=== PATIENT | female | born 1965 | race Caucasian/White ===

== ENCOUNTER 2017-04-03 19:43 | Emergency (ER) | payer BC ==
[2017-04-03] MEDS ORDERED: NS 1,000 ML IV ONE (20:04)
--- NOTE | 2017-04-03 20:14 | EDPHY ---
H & P Smoking Status: Never smoked Time Seen by Provider: 04/03/17 20:02 HPI/ROS: CHIEF COMPLAINT: Left chest pain HISTORY OF PRESENT ILLNESS: The patient is a 51-year-old female presenting with left sided chest pain that has been ongoing for the past 4 days. The patient states she has been previously dx/d with a "pleuritic catch" which intermittently causes pain to the left chest wall (for several years). Over the past 4 days she has developed worsening pain in the same area, just below her left breast. This pain is worse than her typical pain. It is constant, more severe and prevents her from sleeping. Her pain tends to feel worse after eating and improves with walking. She has associated nausea and has not been able to eat much. She denies vomiting or diarrhea. REVIEW OF SYSTEMS: A comprehensive 10 point review of systems is otherwise negative aside from elements mentioned in the history of present illness. (Nathalie Shaffer) Past Medical/Surgical History: Denies. (Nathalie Shaffer) Social History: . Here visiting her son at . (Nathalie Shaffer) Physical Exam: General Appearance: Appears uncomfortable Eyes: Pupils equal and round, no conjunctival pallor or injection ENT, Mouth: Mucous membranes moist Neck: Normal inspection Respiratory: Lungs are clear to auscultation Chest: Normal inspection. No chest wall tenderness. Back: Normal inspection. No tenderness over thoracic spine or ribs. Cardiovascular: Regular rate and rhythm Gastrointestinal: Abdomen is soft and non-tender Neurological: A&O, nonfocal, normal gait Skin: Warm and dry, no rash Extremities: Nontender, no pedal edema Psychiatric: Mood and affect normal (Nathalie Shaffer) Constitutional: Initial Vital Signs Temperature (C) 36.8 C 04/03/17 19:49 Heart Rate 91 04/03/17 19:49 Respiratory Rate 18 04/03/17 19:49 Blood Pressure 142/83 H 04/03/17 19:49 O2 Sat (%) 97 04/03/17 19:49 O2 Delivery Mode Room Air Allergies/Adverse Reactions: No Known Allergies Allergy (Unverified 04/03/17 19:55) Home Medications: Medication Instructions Recorded Ondansetron Odt [Zofran Odt 4 mg 4 mg PO Q4 PRN #6 tab 04/03/17 (*)] oxyCODONE/APAP 325 [Percocet 1 tab PO Q4 PRN #15 tab 04/03/17 5/325 (*)] Medical Decision Making - Diagnostics EKG Interpretation: EKG interpreted by me reveals normal sinus rhythm, rate 74, no ST or T segment changes. (Nathalie Shaffer) Imaging Results: Imaging Impressions Chest X-Ray 04/03/17 20:20 Impression: Query airways disease. Chest/Thorax CTA 04/03/17 21:08 Impression: 1. No pulmonary embolic disease. 2. 2 indeterminant liver lesions. Consider ultrasound for further evaluation. Results called and discussed with Chris Hays M.D., at 21:51 General information for patients regarding this examination can be found at [email or web address]. If you have questions or comments about this report, please contact me at [phone] (hospital) or [phone] (cell). ED Course/Re-evaluation: Patient presents with left chest pain that radiates to her back. No associated URI symptoms. Pain is worse after eating and improves with walking. Patient has a normal examination. Plan for blood work and chest x-ray. Laboratory results, EKG and chest x-ray are all normal. I have a high clinical concern for a serious etiology for her pain. I will proceed with CT scan of the chest to rule out pulmonary embolism or other etiology of pain. Signed over to Dr. Hays. Given severity of pain, if initial testing is normal, recommend DC home with pain medication and PCP follow-up. d/w pt and at length, pt has significant anxiety, likely a contributing factor. Hopefully, CT will be normal and pt will be reassured. Will f/u with PCP when she returns home. (Nathalie Shaffer) 2214: I did re-evaluate this patient this time. She is resting comfortably. Her CT angiogram of her chest does not show pulmonary embolism. There is no explanation for sharp left-sided pain. However her CT scan did show indeterminate liver lesions. I have discussed this with the patient. She understands she needs to follow up with primary care doctor outpatient for this. I recommend liver ultrasound versus CT liver protocol. She understands. (Chris Hays) Differential Diagnosis: Differential diagnosis includes though it is not limited to pneumonia, pneumothorax, pulmonary embolism, aortic dissection, pericarditis, acute coronary syndrome. (Nathalie Shaffer) - Data Points Laboratory Results: Laboratory Results 04/03/17 20:36 04/03/17 20:36 04/03/17 04/03/17 04/03/17 20:37 20:36 20:36 WBC 6.05 10^3/uL 10^3/uL (3.80-9.50) RBC 4.18 10^6/uL 10^6/uL (4.18-5.33) Hgb 14.2 g/dL g/dL (12.6-16.3) POC Hgb 14.6 gm/dL gm/dL (12.6-16.3) Hct 39.9 % % (38.0-47.0) POC Hct 43 % % (38-47) MCV 95.5 fL fL (81.5-99.8) MCH 34.0 pg pg (27.9-34.1) MCHC 35.6 g/dL g/dL (32.4-36.7) RDW 12.1 % % (11.5-15.2) Plt Count 174 10^3/uL 10^3/uL (150-400) MPV 10.9 fL fL (8.7-11.7) Neut % (Auto) 63.3 % % (39.3-74.2) Lymph % (Auto) 26.3 % % (15.0-45.0) [place] % (Auto) 9.1 % % (4.5-13.0) Eos % (Auto) 0.3 % L % (0.6-7.6) Baso % (Auto) 0.7 % % (0.3-1.7) Nucleat RBC Rel Count 0.0 % % (0.0-0.2) Absolute Neuts (auto) 3.83 10^3/uL 10^3/uL (1.70-6.50) Absolute Lymphs (auto) 1.59 10^3/uL 10^3/uL (1.00-3.00) Absolute Monos (auto) 0.55 10^3/uL 10^3/uL (0.30-0.80) Absolute Eos (auto) 0.02 10^3/uL L 10^3/uL (0.03-0.40) Absolute Basos (auto) 0.04 10^3/uL 10^3/uL (0.02-0.10) Absolute Nucleated RBC 0.00 10^3/uL 10^3/uL (0-0.01) Immature Gran % 0.3 % % (0.0-1.1) Immature Gran # 0.02 10^3/uL 10^3/uL (0.00-0.10) D-Dimer POC Sodium 141 mEq/L mEq/L (134-144) Sodium 143 mEq/L mEq/L (134-144) POC Potassium 3.4 mEq/L mEq/L (3.3-5.0) Potassium 3.7 mEq/L mEq/L (3.5-5.2) POC Chloride 103 mEq/L mEq/L (97-110) Chloride 100 mEq/L mEq/L (97-110) Carbon Dioxide 26 mEq/l mEq/l (22-31) Anion Gap 17 mEq/L H mEq/L (8-16) POC BUN 14 mg/dL mg/dL (7-23) BUN 16 mg/dL mg/dL (7-23) Creatinine 0.7 mg/dL mg/dL (0.6-1.0) POC Creatinine 0.8 mg/dL mg/dL (0.6-1.0) Estimated GFR > 60 Glucose 102 mg/dL H mg/dL (70-100) POC Glucose 102 mg/dL H mg/dL (70-100) Calcium 10.2 mg/dL mg/dL (8.5-10.4) Lipase 104 IU/L IU/L (23-300) 04/03/17 20:20 WBC RBC Hgb POC Hgb Hct POC Hct MCV MCH MCHC RDW Plt Count MPV Neut % (Auto) Lymph % (Auto) [place] % (Auto) Eos % (Auto) Baso % (Auto) Nucleat RBC Rel Count Absolute Neuts (auto) Absolute Lymphs (auto) Absolute Monos (auto) Absolute Eos (auto) Absolute Basos (auto) Absolute Nucleated RBC Immature Gran % Immature Gran # D-Dimer < 0.27 ug/mLFEU ug/mLFEU (0.00-0.50) POC Sodium Sodium POC Potassium Potassium POC Chloride Chloride Carbon Dioxide Anion Gap POC BUN BUN Creatinine POC Creatinine Estimated GFR Glucose POC Glucose Calcium Lipase Medications Given: Discontinued Medications Hydromorphone HCl (Dilaudid) 0.5 mg IVP EDNOW ONE Stop: 04/03/17 20:21 Last Admin: 04/03/17 20:50 Dose: 0.5 mg Sodium Chloride (Ns) 1,000 mls @ 0 mls/hr IV EDNOW ONE; Wide Open PRN Reason: Protocol Stop: 04/03/17 20:05 Last Admin: 04/03/17 20:51 Dose: 1,000 mls Ketorolac Tromethamine (Toradol) 15 mg IVP EDNOW ONE Stop: 04/03/17 21:24 Last Admin: 04/03/17 21:43 Dose: 15 mg Ondansetron HCl (Zofran) 4 mg IVP EDNOW ONE Stop: 04/03/17 20:21 Last Admin: 04/03/17 20:40 Dose: 4 mg Ondansetron HCl (Zofran Odt 4 Mg Prepack#2) 1 btl TAKEHOME EDNOW ONE Stop: 04/03/17 21:24 Last Admin: 04/03/17 21:41 Dose: 1 btl Oxycodone/Acetaminophen (Percocet 5/325mg Prepack#4) 1 btl TAKEHOME EDNOW ONE Stop: 04/03/17 21:24 Last Admin: 04/03/17 21:42 Dose: 1 btl Point of Care Test Results: 04/03/17 20:37 POC Sodium 141 POC Potassium 3.4 POC Chloride 103 POC BUN 14 POC Creatinine 0.8 POC Glucose 102 H Departure - Departure Disposition: Home, Routine, Self-Care Clinical Impression: Chest pain Qualifiers: Chest pain type: other chest pain Qualified Code(s): R07.89 - Other chest pain Condition: Good Instructions: Oxycodone/Acetaminophen (By mouth), Ondansetron (By mouth), Chest Pain (ED) Additional Instructions: Ibuprofen 600 mg 3 times daily while the pain persists. Take Percocet 1 tablet every 4 hours as needed for severe pain. Take Zofran 1 tablet under tongue every 6 hours as needed for nausea. Return for worsening symptoms or any concerns. Follow-up with your family physician next week. Take copies of your laboratory testing and radiologic studies. I did see liver lesions on her CT scan please follow up with primary care doctor about this. Referrals: [facility]OTO [Other] - 2-3 days without fail Stand Alone Forms: Airline Excuse Prescriptions: Ondansetron Odt [Zofran Odt 4 mg (*)] 4 mg PO Q4 PRN #6 tab PRN Reason: Nausea oxyCODONE/APAP 5/325 [Percocet 5/325 (*)] 1 tab PO Q4 PRN #15 tab PRN Reason: pain Report Scribed for: Nathalie Shaffer Report Scribed by: Yesenia Cruz Date of Report: 04/03/17 Time of Report: 20:06 Physician Review and Approval Statement: 04/03/17 20:06 Portions of this note were transcribed by a program medical director. I personally performed the history, physical exam, and medical decision-making; and confirmed the accuracy of the information in the transcribed note. (Nathalie Shaffer)
[2017-04-03] MEDS ORDERED: ONDANSETRON 4 MG/2 ML VIAL IVP ONE (20:20)
[2017-04-03] MEDS ORDERED: HYDROmorphONE/DILAUDID 1 MG/ML INJ IVP ONE (20:20)
[2017-04-03 20:47] LABS: PLATELET COUNT 174 10^3/uL (150-400)
[2017-04-03 20:53] VITALS: RESP 16
--- NOTE | 2017-04-03 21:07 | CPEKG ---
Heart Rate: 74 RR Interval: 811 P-R Interval: 160 QRSD Interval: 88 QT Interval: 408 QTC Interval: 453 P [place]: 80 QRS [place]: 81 T Wave [place]: 38 EKG Severity - ABNORMAL ECG - EKG Impression: SINUS RHYTHM EKG Impression: LEFT ATRIAL ABNORMALITY Electronically Signed By: Nathalie Shaffer 06-Apr-2017 20:10:03
--- NOTE | 2017-04-03 21:07 | CPEKG ---
Heart Rate: 74 RR Interval: 811 P-R Interval: 160 QRSD Interval: 88 QT Interval: 408 QTC Interval: 453 P [place]: 80 QRS [place]: 81 T Wave [place]: 38 EKG Severity - ABNORMAL ECG - EKG Impression: SINUS RHYTHM EKG Impression: LEFT ATRIAL ABNORMALITY Electronically Signed By: Nathalie Shaffer 06-Apr-2017 20:10:03
[2017-04-03] MEDS ORDERED: IOPAMIDOL (ISOVUE 370) 100 ML BTL IV ONE (21:17)
[2017-04-03] MEDS ORDERED: ONDANSETRON 4MG PREPACK#2 BTL TAKEHOME ONE (21:23)
[2017-04-03] MEDS ORDERED: OXYCODONE/APAP 5/325MG PREPACK#4 BTL TAKEHOME ONE (21:23)
[2017-04-03] MEDS ORDERED: KETOROLAC 15 MG/1 ML SDV IVP ONE (21:23)
[2017-04-03 22:31] VITALS: BP 104/43; PULSE 67; TEMP 98.1; O2SAT 96
== END 2017-04-03 22:29 | disposition home or self-care (01) ==
DX: R07.89 Other chest pain (principal); E86.9 Volume depletion, unspecified
CPT/HCPCS: 82947-QW; 96374; J1170; J1885; J2405; Q9967